=== PATIENT | male | born 1980 | race Caucasian/White ===

== ENCOUNTER 2024-05-22 01:24 | Inpatient (IN) | payer BC ==
[2024-05-22] MEDS ORDERED: Ondansetron PF 4 MG/2 ML Vial IVP PRN (01:42)
[2024-05-22] MEDS ORDERED: Acetaminophen 325 MG TAB PO PRN (01:42)
[2024-05-22] MEDS ORDERED: Ondansetron ODT 4 MG TAB PO PRN (01:42)
[2024-05-22 01:51] VITALS: BMI 37.0
[2024-05-22] MEDS ORDERED: Electrolyte Replacement Protocol 1 EACH FS SCH (01:55)
[2024-05-22 01:59] LABS: #Basophils 0.05 10x3/uL (0.0-0.2); %Basophils 0.4 % (0.0-1.0); %Eosinophils 1.8 % (0.0-10.0); %Lymphocytes 24.6 % (21.0-51.0); %Monocytes 8.8 % (0.0-10.0); %Neutrophils 63.9 % (42.0-75.0); Hemoglobin 15.7 g/dL (14.0-18.0); Mean Corpuscular HGB CONC 33.4 g/dL (32.0-36.0); Mean Corpuscular Hemoglobin 31.2 pg (27.0-31.0); Mean Corpuscular Volume 93.4 fL (78.0-98.0); Mean Platelet Volume 9.2 fL (7.4-10.4); Platelet Count 240 10x3/uL (130-400); RBC Distribution Width 12.6 % (11.5-14.5); Red Blood Cell (RBC) Count 5.03 mill/uL (4.70-6.10)
[2024-05-22] MEDS ORDERED: Ipratropium/Albuterol 3 ML NEB NEB PRN (02:02)
[2024-05-22 02:12] LABS: Hemoglobin A1c 4.9 % (4.0-6.0)
[2024-05-22 02:14] LABS: ALT (SGPT) 38 U/L (8-55); AST (SGOT) 22 U/L (5-34); Albumin 3.9 g/dL (3.5-5.0); Alkaline Phosphatase 54 U/L (40-110); Anion Gap 15 mmol/L (10-20); BUN (Urea Nitrogen) 10 mg/dL (8.9-20.6); Bilirubin, Total 0.4 mg/dL (0.2-1.2); Calc. Creatinine Clearance 205 mL/min (70-130); Calcium 10.1 mg/dL (7.8-10.44); Carbon Dioxide 20 mmol/L (22-29); Cardiac Risk 5.7 (Less than 4.5); Chloride 103 mmol/L (98-107); Cholesterol 204 mg/dl (< 200 Desired); Estimated GFR 117; Glucose 100 mg/dL (70-105); HDL Cholesterol 36 mg/dL (>60 Neg Risk); LDL Cholesterol, Calculated 97 mg/dL; Magnesium 1.9 mg/dL (1.6-2.6); Potassium 4.3 mmol/L (3.5-5.1); Protein, Total 6.9 g/dL (6.0-8.3); Sodium 134 mmol/L (136-145); Triglycerides 354 mg/dL (Less than 150)
[2024-05-22 02:30] LABS: Troponin I Less than 0.010 ng/mL (< 0.028)
[2024-05-22] MEDS ORDERED: Sodium Chloride 0.9% 1,000 ML IV SCH (02:30)
[2024-05-22] MEDS: Magnesium Oxide 400 MG TAB PO SCH (03:06)
[2024-05-22] MEDS: Nitroglycerin 0.4 MG TAB (25 Tab Bottle) SL PRN (03:06)
[2024-05-22] MEDS: Ketorolac Tromethamine 30 MG (1 mL) VIAL IVP SCH ×3 (04:08→13:59)
[2024-05-22 04:16] LABS: Influenza A by NAA Not Detected (NotDetected); Influenza B by NAA Not Detected (NotDetected); SARS-CoV-2 NAA Rapid Test Not Detected (NotDetected)
[2024-05-22 06:56] LABS: Troponin I Less than 0.010 ng/mL (< 0.028)
[2024-05-22] MEDS: Famotidine 20 MG TAB PO SCH (08:15)
[2024-05-22] MEDS: Hydrochlorothiazide 25 MG TAB PO SCH (08:15)
[2024-05-22] MEDS: Montelukast Sodium 10 mg Tablet PO SCH (08:15)
[2024-05-22] MEDS: Rosuvastatin 10 MG TAB PO SCH (08:15)
[2024-05-22] MEDS: Losartan 25 MG TAB PO SCH (08:15)
[2024-05-22] MEDS ORDERED: Albuterol 200 PUFF (6.7GM INHALER) INH PRN (09:00)
[2024-05-22] MEDS ORDERED: Enoxaparin 40 MG (0.4 mL) SYRINGE SC SCH (09:00)
[2024-05-22] MEDS ORDERED: Non-Formulary Item 1 EACH (Olmesartan/Hydrochlorothiazide [Olmesartan-Hctz 20-12.5 Mg Tab PO SCH (09:00)
[2024-05-22 13:34] VITALS: TEMP 98.5
== END 2024-05-22 17:19 | disposition left against medical advice (07) | DRG 309 ==
LOC: IMCU/EMU 01:24
PROVIDERS: ADMIT Internal Medicine; ATTEND Internal Medicine
DX: R00.1 Bradycardia, unspecified (principal); E87.1 Hypo-osmolality and hyponatremia; R07.9 Chest pain, unspecified; I10 Essential (primary) hypertension; J45.909 Unspecified asthma, uncomplicated; F41.9 Anxiety disorder, unspecified; F17.210 Nicotine dependence, cigarettes, uncomplicated; D72.829 Elevated white blood cell count, unspecified; E78.00 Pure hypercholesterolemia, unspecified; E66.9 Obesity, unspecified; K44.9 Diaphragmatic hernia without obstruction or gangrene; E78.1 Pure hyperglyceridemia; Z68.37 Body mass index [BMI] 37.0-37.9, adult; Z79.899 Other long term (current) drug therapy; Z79.51 Long term (current) use of inhaled steroids; Z82.49 Family history of ischemic heart disease and other diseases of the circulatory system; Z71.6 Tobacco abuse counseling; R79.89 Other specified abnormal findings of blood chemistry
CPT/HCPCS: 36415; 71045; 80053; 80061; 80306; 81001; 82550; 83036; 83735; 83880; 84443; 84484; 85025; 86141; 93005; 93010; 93017; 93306; J1885